=== PATIENT | male | born 1950 | race Caucasian/White ===

== ENCOUNTER → 2018-06-21 00:53 | Outpatient (CLI) | payer BC, SELFPAY ==
[2018-06-21 11:29] LABS: Hemoglobin A1C 9.8 % (4.5-6.2)
== END ==
PROVIDERS: PCP Emergency Medicine; Visit Provider Emergency Medicine
DX: E11.9 Type 2 diabetes mellitus without complications (principal)
CPT/HCPCS: 36415; 83036